=== PATIENT | female | born 1940 | race Caucasian/White ===

== ENCOUNTER 2019-08-28 12:55 | Inpatient (IN) ==
[2019-08-28] MEDS ORDERED: Ipratropium/Albuterol Neb 3 ML IH ONE ×2 (13:42→17:00)
[2019-08-28 13:47] LABS: Basophils # 0.1 K/mcL (0.0-0.2); Basophils % 0.8 %; Eosinophils # 0.3 K/mcL (0.0-0.6); Hematocrit 41.7 % (35.3-44.9); Hemoglobin 13.5 g/dL (11.5-15.4); Lymphocytes # 0.7 K/mcL (0.6-4.6); Lymphocytes % 11.9 %; Mean Corpuscular HGB Conc 32.4 g/dL (31.6-35.5); Mean Corpuscular Hemoglobin 32.1 pg (28.0-33.3); Mean Corpuscular Volume 99.3 fL (83.0-100.0); Mean Platelet Volume 10.4 fL (9.4-12.4); Monocytes # 0.5 K/mcL (0.0-1.3); Monocytes % 8.2 %; Neutrophils # 4.6 K/mcL (1.6-8.9); Platelet Count 298 K/mcL (140-400); Red Cell Distribution Width 14.2 % (11.5-14.5); Segmented Neutrophils % 73.1 %; White Blood Count 6.2 K/mcL (4.3-11.1)
[2019-08-28 14:03] LABS: BUN/Creatinine Ratio 25 (6-26); Blood Urea Nitrogen 35 mg/dL (8-23); Carbon Dioxide 30 mEq/L (23-29); Chloride 96 mEq/L (98-107); Glucose 99 mg/dL (70-105); Osmolality,Calculated 288 (280-300); Potassium 4.3 mEq/L (3.5-5.1); Sodium 135 mEq/L (136-145); eGFR For African Americans 44 (> 60); eGFR For Non-African Americans 36 (> 60)
[2019-08-28 14:04] LABS: Troponin I < 0.03 ng/mL (< 0.04)
[2019-08-28] MEDS ORDERED: Ondansetron ODT 4 MG TAB.RAPDIS SL PRN (17:42)
[2019-08-28] MEDS ORDERED: Naloxone 0.4 MG/ML INJ IVP PRN (17:42)
[2019-08-28] MEDS ORDERED: D5% in Water 1,000 ML IVC PRN (17:44)
[2019-08-28] MEDS ORDERED: *HR* Dextrose 50 % in Water (Vial) 50 ML VIAL IVP PRN (17:44)
[2019-08-28] MEDS ORDERED: Dextrose Gel 15 GM/37.5 ML TUBE PO PRN ×2 (17:44)
[2019-08-28] MEDS ORDERED: 0.9 % Sodium Chloride 500 ML IVC ONE (17:51)
[2019-08-28] MEDS: *HR* Heparin 5,000 UNIT/ML VIAL SQ SCH (18:36)
[2019-08-28] MEDS: 0.9 % Sodium Chloride 1,000 ML IVC SCH (18:38)
[2019-08-28] MEDS: Ipratropium/Albuterol Neb 3 ML IH SCH ×2 (20:17→23:07)
[2019-08-28 20:39] LABS: ABG Base Excess 7 mEq/L (-2 to 3); ABG HCO3 32 mEq/L (21-27); ABG Oxygen Saturation 99 % (95-98); ABG PCO2 45 mmHg (35-45); ABG PH 7.46 pH Units (7.32-7.45); ABG PO2 109 mmHg (85-104); ABG TCO2 33 mEq/L (20-26)
[2019-08-28] MEDS: Insulin LISPRO 300 UNITS/3 ML VIAL SQ SCH (21:05)
[2019-08-29] MEDS: *HR* Heparin 5,000 UNIT/ML VIAL SQ SCH ×4 (01:08→23:52)
[2019-08-29] MEDS: Ipratropium/Albuterol Neb 3 ML IH SCH ×6 (04:31→23:36)
[2019-08-29] MEDS: 0.9 % Sodium Chloride 1,000 ML IVC SCH (05:14)
[2019-08-29 07:10] LABS: Hematocrit 38.9 % (35.3-44.9); Hemoglobin 12.1 g/dL (11.5-15.4); Mean Corpuscular HGB Conc 31.1 g/dL (31.6-35.5); Mean Corpuscular Volume 102.9 fL (83.0-100.0); Mean Platelet Volume 10.8 fL (9.4-12.4); Platelet Count 281 K/mcL (140-400); Red Blood Count 3.78 M/mcL (3.82-4.97); Red Cell Distribution Width 14.3 % (11.5-14.5)
[2019-08-29 07:36] LABS: Calcium 9.8 mg/dL (8.6-10.3); Potassium 3.6 mEq/L (3.5-5.1)
[2019-08-29] MEDS: Insulin LISPRO 300 UNITS/3 ML VIAL SQ SCH ×4 (08:17→19:49)
[2019-08-29 08:25] LABS: Bacteria,Urine Few per hpf (None-Few); Bilirubin,Urine Negative (Negative); Blood,Urine Small (Negative); Calcium Oxalate Crystals,Urine Present; Clarity,Urine Turbid (Clear); Color,Urine Yellow (Yellow); Glucose,Urine (UA) Normal (Normal); Hyaline Casts,Urine Many per lpf (None Seen); Ketones,Urine Negative (Negative); Leukocyte Esterase,Urine Small (Negative); Mucus,Urine Few per lpf (None-Few); Nitrite,Urine Negative (Negative); PH,Urine 5.5 pH Units (5.0-8.0); Protein,Urine 30 mg/dL (Neg-Trace); RBC,Urine 30-50 per hpf (0-3); Specific Gravity,Urine 1.018 (1.010-1.025); Squamous Epithelial Cell,Urine Few per hpf (None-Few); Urobilinogen,Urine Normal (Normal)
[2019-08-29] MEDS: predniSONE 20 MG TABLET PO SCH (09:37)
[2019-08-29] MEDS ORDERED: Furosemide 40 MG/4 ML VIAL IVP ONE (16:41)
[2019-08-29] MEDS: MOM Conc 10 ML UD.LIQ PO PRN (17:30)
[2019-08-29] MEDS: Primidone 50 MG TABLET PO SCH (19:44)
[2019-08-29] MEDS: lamoTRIgine 25 MG TABLET PO SCH (19:44)
[2019-08-29] MEDS ORDERED: Spironolactone 25 MG TABLET PO SCH (21:00)
[2019-08-29] MEDS ORDERED: Acetaminophen 325 MG TABLET PO ONE (23:32)
[2019-08-30] MEDS: Ipratropium/Albuterol Neb 3 ML IH SCH ×6 (04:23→20:00)
[2019-08-30 06:39] LABS: Hematocrit 36.5 % (35.3-44.9); Hemoglobin 11.4 g/dL (11.5-15.4); Mean Corpuscular HGB Conc 31.2 g/dL (31.6-35.5); Mean Corpuscular Hemoglobin 31.5 pg (28.0-33.3); Mean Corpuscular Volume 100.8 fL (83.0-100.0); Mean Platelet Volume 10.7 fL (9.4-12.4); Platelet Count 269 K/mcL (140-400); Red Blood Count 3.62 M/mcL (3.82-4.97); Red Cell Distribution Width 14.4 % (11.5-14.5); White Blood Count 5.9 K/mcL (4.3-11.1)
[2019-08-30 07:05] LABS: BUN/Creatinine Ratio 29 (6-26); Blood Urea Nitrogen 28 mg/dL (8-23); Calcium 9.2 mg/dL (8.6-10.3); Carbon Dioxide 28 mEq/L (23-29); Chloride 98 mEq/L (98-107); Glucose 213 mg/dL (70-105); Osmolality,Calculated 294 (280-300); Potassium 3.5 mEq/L (3.5-5.1); Sodium 136 mEq/L (136-145); eGFR For African Americans > 60 (> 60); eGFR For Non-African Americans 56 (> 60)
[2019-08-30] MEDS ORDERED: methylPREDNISolone 125 MG/2 ML VIAL IVP ONE (08:08)
[2019-08-30] MEDS: Insulin LISPRO 300 UNITS/3 ML VIAL SQ SCH ×4 (08:10→21:24)
[2019-08-30] MEDS: *HR* Heparin 5,000 UNIT/ML VIAL SQ SCH ×2 (08:11→17:14)
[2019-08-30] MEDS: lamoTRIgine 25 MG TABLET PO SCH ×2 (08:12→21:18)
[2019-08-30] MEDS: Furosemide 40 MG TABLET PO SCH ×2 (08:12→21:19)
[2019-08-30] MEDS: predniSONE 20 MG TABLET PO SCH (08:13)
[2019-08-30] MEDS ORDERED: Albuterol 2.5 MG/3 ML NEBULIZER IH PRN (08:14)
[2019-08-30] MEDS ORDERED: Perflutren Lipid Microsphere 1.3 ML in 0.9 % Sodium Chloride 8.7 ML IVP ONE ×2 (08:18→11:52)
[2019-08-30] MEDS ORDERED: BuPROPion XL (24 HR) 150 MG TABLET PO SCH (09:00)
[2019-08-30] MEDS ORDERED: Insulin DETEMIR 100 UNIT/ML X5UNITS SQ SCH (09:00)
[2019-08-30] MEDS: MOM Conc 10 ML UD.LIQ PO PRN (11:13)
[2019-08-30] MEDS ORDERED: MethylPREDNISolone 40 MG/ML VIAL IVP SCH (18:00)
[2019-08-30] MEDS: Primidone 50 MG TABLET PO SCH (21:19)
[2019-08-30] MEDS ORDERED: Acetaminophen 325 MG TABLET PO ONE (21:30)
[2019-08-30 22:55] VITALS: BP 109/66
== END 2019-08-30 23:28 | disposition short-term general hospital (02) | DRG 189 ==
LOC: 3BNU 12:55 → EMEROOARM 12:55 → SUATTDRO 17:05 → 3BNU 19:05
PROVIDERS: ADMIT Family Medicine; ATTEND Family Medicine